=== PATIENT | male | born 1980 | race Caucasian/White ===

== ENCOUNTER 2019-06-19 16:08 | Inpatient (IN) | payer OTHER ==
[~2019-06-19] VITALS: Ht 172.7 cm; Wt 90.3 kg
--- NOTE | 2019-06-19 16:49 | NUR ---
PT STATES HE DRINK A PINT OF BOURBAN A DAY. HIS LAST DRINK WAS YESTERDAY.
[2019-06-19 17:26] LABS: BASOPHILS # (AUTO) 0.2 X10'3 (0-0.2); BASOPHILS % (AUTO) 1.8 % (0-1); EOSINOPHILS # (AUTO) 0.2 X10'3 (0-0.9); HEMATOCRIT 31.2 % (42.0-52.0); HEMOGLOBIN 9.4 g/dl (14.0-17.9); LYMPHOCYTES # (AUTO) 0.8 X10'3 (1.1-4.8); LYMPHOCYTES % (AUTO) 9.5 % (21-51); MEAN CORPUSCULAR HEMOGLOBIN 24.1 PG (27.0-31.0); MEAN CORPUSCULAR HGB CONC 30.2 g/dL (33.0-36.5); MEAN CORPUSCULAR VOLUME 79.8 FL (78-98); MEAN PLATELET VOLUME 7.5 FL (7.4-10.4); MONOCYTES # (AUTO) 0.6 X10'3 (0-0.9); MONOCYTES % (AUTO) 7.5 % (2-12); NEUTROPHILS # (AUTO) 6.6 X10'3 (1.8-7.7); NEUTROPHILS % (AUTO) 79.2 % (42-75); PLATELET COUNT 213 X10'3 (140-440); RED BLOOD COUNT 3.91 X10'6 (4.70-6.10); WHITE BLOOD COUNT 8.4 X10'3 (4.5-11.0)
[2019-06-19 17:36] LABS: PARTIAL THROMBOPLASTIN TIME 36 SECONDS (22-32)
[2019-06-19 17:43] LABS: CLARITY,URINE CLEAR (Clear); GLUCOSE, URINE NEGATIVE (Neg); KETONES,URINE NEGATIVE (Neg); LEUKOCYTE ESTERASE ,URINE NEGATIVE (Neg); NITRITES, URINE NEGATIVE (Neg); OCCULT BLOOD,URINE NEGATIVE (Neg); PH,URINE 6.5 (4.8-8.0); PROTEIN,URINE 30 mg/dl (Neg); UROBILINOGEN,URINE >=8.0 E.U/dL (0.2-1.0)
[2019-06-19] MEDS ORDERED: amiodarone 150mg/dext, iso-os 100 ML IV ONE (17:45)
[2019-06-19 17:46] LABS: COLOR,URINE DARK YELLOW (Yellow); UA COLLECTION TYPE URINAL
[2019-06-19 17:50] LABS: ALANINE AMINOTRANSFERASE 57 U/L (12-78); ALBUMIN 3.3 G/DL (3.4-5.0); ALBUMIN/GLOBULIN RATIO 0.8 (1.1-1.5); ALKALINE PHOSPHATASE 176 IU/L (46-116); ANION GAP 6 (8-16); ASPARTATE AMINO TRANSFERASE 60 U/L (10-37); BILIRUBIN,TOTAL 1.5 MG/DL (0.1-1.0); BLOOD UREA NITROGEN 16 MG/DL (7-18); BUN/CREATININE RATIO 11.3 (5.4-32.0); CALCIUM 8.5 MG/DL (8.5-10.1); CHLORIDE 106 MMOL/L (99-107); CREATININE 1.42 MG/DL (0.60-1.10); GLUCOSE 120 MG/DL (70-104); MAGNESIUM 1.9 MG/DL (1.5-2.4); SODIUM 140 MMOL/L (135-145); TOTAL CARBON DIOXIDE 28.3 MMOL/L (24-32); TOTAL PROTEIN 7.2 G/DL (6.4-8.2); eGFR 55 ML/MIN
[2019-06-19 17:53] LABS: BACTERIA,URINE NONE SEEN /HPF (Neg); RBC,URINE 0-2 /HPF (0-2); SQUAMOUS EPITHELIAL CELL,UR NONE SEEN /LPF (FEW); WBC,URINE 0-4 /HPF (0-4)
--- NOTE | 2019-06-19 17:59 | NUR ---
RECORDS REQUEST FROM [facility] IN [place], [place] FAX REQUEST [phone]
[2019-06-19 18:45] LABS: URINE AMPHETAMINE SCREEN NEGATIVE (Neg); URINE BARBITUATE SCREEN NEGATIVE (Neg); URINE BENZODIAZEPINES SCREEN NEGATIVE (Neg); URINE CANNABINOID SCREEN NEGATIVE (Neg); URINE COCAINE SCREEN NEGATIVE (Neg); URINE METHADONE SCREEN NEGATIVE (Neg); URINE OPIATE SCREEN NEGATIVE (Neg); URINE PHENCYCLIDINE SCREEN NEGATIVE (Neg)
[2019-06-19] MEDS ORDERED: LISI-600 PO (18:48)
[2019-06-19] MEDS ORDERED: WARF5TAB PO (18:51)
[2019-06-19] MEDS ORDERED: WARF-55 PO (18:51)
[2019-06-19] MEDS ORDERED: COU7.5T PO (18:51)
[2019-06-19] MEDS ORDERED: FURO-150 PO (18:53)
[2019-06-19] MEDS ORDERED: CARV-50 PO (18:53)
[2019-06-19 19:44] LABS: ANISOCYTOSIS 3+; MICROCYTOSIS 1+; PLATELET ESTIMATE NORMAL
[2019-06-19] MEDS ORDERED: acetaminophen 325mg tablet PO PRN ×2 (20:30)
[2019-06-19] MEDS ORDERED: potassium CL 10mEq/100ml bag 100 ML IV PRN ×2 (20:30)
[2019-06-19] MEDS ORDERED: mag hydrox/Alum hydrox/simeth 30ml oral suspension PO PRN (20:30)
[2019-06-19] MEDS ORDERED: magnesium Cl slow-release 64mg tablet PO PRN (20:30)
[2019-06-19] MEDS ORDERED: magnesium hydroxide 30ml (MOM) UD suspension PO PRN (20:30)
[2019-06-19] MEDS ORDERED: magnesium 2GM in 50ml NS 50 ML IV PRN (20:30)
[2019-06-19] MEDS ORDERED: ondansetron/PF 4mg/2ml inj IV PRN (20:30)
[2019-06-19] MEDS ORDERED: magnesium 4gm in 100ml NS 100 ML IV PRN (20:30)
[2019-06-19] MEDS ORDERED: nitroGLYCERIN 0.4mg SUBLingual tab SL PRN (20:30)
[2019-06-19] MEDS ORDERED: potassium Cl 20 mEq SR tablet PO PRN ×2 (20:30)
--- NOTE | 2019-06-19 21:30 | NUR ---
Patient in room PCU 3014. I have received report from Lila PETERSON and had the opportunity to ask questions and assume patient care.
--- NOTE | 2019-06-19 21:35 | NUR ---
Pt arrived on unit in stable condition.
[2019-06-19 21:45] VITALS: BP 102/65
[2019-06-20 02:00] VITALS: BP 98/72
[2019-06-20 05:14] LABS: BASOPHILS # (AUTO) 0.1 X10'3 (0-0.2); EOSINOPHILS # (AUTO) 0.2 X10'3 (0-0.9); EOSINOPHILS % (AUTO) 3.4 % (0-6); HEMATOCRIT 29.7 % (42.0-52.0); LYMPHOCYTES # (AUTO) 1.1 X10'3 (1.1-4.8); LYMPHOCYTES % (AUTO) 14.7 % (21-51); MEAN CORPUSCULAR HEMOGLOBIN 24.5 PG (27.0-31.0); MEAN CORPUSCULAR HGB CONC 30.4 g/dL (33.0-36.5); MEAN CORPUSCULAR VOLUME 80.5 FL (78-98); MEAN PLATELET VOLUME 7.7 FL (7.4-10.4); MONOCYTES # (AUTO) 0.7 X10'3 (0-0.9); MONOCYTES % (AUTO) 8.9 % (2-12); NEUTROPHILS # (AUTO) 5.3 X10'3 (1.8-7.7); PLATELET COUNT 215 X10'3 (140-440); RED BLOOD COUNT 3.69 X10'6 (4.70-6.10); RED CELL DISTRIBUTION WIDTH 22.9 % (11.5-14.5); WHITE BLOOD COUNT 7.3 X10'3 (4.5-11.0)
[2019-06-20 05:25] LABS: ALBUMIN 3.1 G/DL (3.4-5.0); ANION GAP 7 (8-16); BLOOD UREA NITROGEN 17 MG/DL (7-18); BUN/CREATININE RATIO 12.1 (5.4-32.0); CALCIUM 8.5 MG/DL (8.5-10.1); CHLORIDE 105 MMOL/L (99-107); CREATININE 1.41 MG/DL (0.60-1.10); GLUCOSE 131 MG/DL (70-104); POTASSIUM 3.7 MMOL/L (3.5-5.1); SODIUM 141 MMOL/L (135-145); eGFR 56 ML/MIN
[2019-06-20 06:39] LABS: PLATELET ESTIMATE NORMAL
[2019-06-20 06:40] LABS: ANISOCYTOSIS 3+; HYPOCHROMASIA 1+; MICROCYTOSIS 1+; POLYCHROMASIA 2+; TEAR DROP CELLS 1+
--- NOTE | 2019-06-20 06:48 | NUR ---
Problems reprioritized. Patient report given, questions answered & plan of care reviewed with Domi PETERSON.
--- NOTE | 2019-06-20 07:02 | NUR ---
Patient in room PCU 3014. I have received report from KRISTEN Pineda and had the opportunity to ask questions and assume patient care.
[2019-06-20 07:19] VITALS: BP 116/78
[2019-06-20] MEDS ORDERED: furosemide 40mg/4ml inj IV SCH ×2 (08:00→20:00)
[2019-06-20] MEDS ORDERED: furosemide 20MG tablet PO SCH (08:00)
[2019-06-20] MEDS ORDERED: lisinopril 10 MG tablet PO SCH (08:00)
[2019-06-20] MEDS ORDERED: carVEDilol 12.5mg tablet PO SCH (08:00)
[2019-06-20] MEDS ORDERED: K and/or MAG REPLACEMENT MC SCH (08:00)
[2019-06-20] MEDS ORDERED: enoxaparin 40mg/0.4ml syringe SQ SCH (08:00)
[2019-06-20 11:00] VITALS: BP 131/83
[2019-06-20 15:00] VITALS: BP 126/69
--- NOTE | 2019-06-20 15:25 | NUR ---
Per MD orders, pt is stable for discharge. Report given to AIMEE Harrell at [facility]. Tele monitor removed. PIV removed with cannula intact. Pt left via wheelchair with Helga Cargo in a Medi-van. All belongings taken with patient. Addendum: 06/20/19 at 1550 by Domi Perez RN VOID NOTE!
--- NOTE | 2019-06-20 15:27 | NUR ---
Paged Monica PAGER ID: [phone] MESSAGE: [id number]: Ozzy Valdze: NAMITA: per ECHO results, pts EF is 20-25%, proBNP of 1946. Kindly advise if new orders! -Domi [phone]
--- NOTE | 2019-06-20 16:32 | NUR ---
Lindsey Anderson PAGER ID: [phone] MESSAGE: [id number]: FYI: pt left AMA at 1615, aide found tele monitor on bed and ran to lobby to find pt removed PIV. - Domi [phone] Aide asked pt to lift up both sleeves, PIV removed
[2019-06-20] MEDS ORDERED: warfarin 5mg tablet PO ONE (21:00)
== END 2019-06-20 16:15 | disposition left against medical advice (07) | DRG 293 ==
LOC: ER 16:09 → ED HOLD 21:15 → PCU 3S 21:37
PROVIDERS: ADMIT Hospitalist; ATTEND Internal Medicine
DX: I11.0 Hypertensive heart disease with heart failure (principal); Z53.29 Procedure and treatment not carried out because of patient's decision for other reasons; Z86.73 Personal history of transient ischemic attack (TIA), and cerebral infarction without residual deficits; F12.90 Cannabis use, unspecified, uncomplicated; F17.210 Nicotine dependence, cigarettes, uncomplicated; I48.91 Unspecified atrial fibrillation; I50.9 Heart failure, unspecified; Z91.14 Patient's other noncompliance with medication regimen
CPT/HCPCS: 36415; 71045; 80048; 80053; 80305; 81001; 83605; 83735; 83880; 84145; 84484; 85025; 85610; 85730; 87040; 93005; 93306; 96374; 99285; G0378; J0282; J1940